=== PATIENT | male | born 1985 | race Caucasian/White ===

== ENCOUNTER 2020-06-18 16:39 | Inpatient (IN) | payer OTHER ==
[2020-06-18 16:46] VITALS: BMI 28.1
[2020-06-18] MEDS ORDERED: DEXAMETHASONE SOD PHOSPHATE 10 MG/1 ML VIAL IVPB ONE (18:09)
[2020-06-18] MEDS ORDERED: DEXAMETHASONE SOD PHOSPHATE 10 MG/1 ML VIAL ONE (18:38)
[2020-06-18 18:56] LABS: VENOUS BASE EXCESS -0.6 mmol/L (-2-2); VENOUS O2 SATURATION 45.7 % (70-80); VENOUS PCO2 48.7 mmHg (38-52); VENOUS PH 7.341 (7.310-7.410)
[2020-06-18 18:57] LABS: BASO % 0.3 % (0-2.0); HEMATOCRIT 42.4 % (35.4-49); HEMOGLOBIN 14.2 GM/dL (11.7-16.9); LYMPH % 14.6 % (8-40); MCH 31.7 pg (25.7-33.7); MCHC 33.6 g/dl (32.0-35.9); MEAN CELL VOLUME 94.3 fl (80-96); MEAN PLT VOLUME 9.1 fl (7.5-11.1); MONO % 5.8 % (3.8-10.2); NEUT % 79.3 % (42.8-82.8); PLATELET COUNT 307 K/MM3 (134-434); RBC 4.49 M/mm3 (4.00-5.60); RDW 12.7 % (11.9-15.9); WHITE BLOOD COUNT 9.1 K/mm3 (4.0-10.0)
[2020-06-18 19:00] LABS: INR 1.08 (0.83-1.09)
[2020-06-18 19:02] LABS: ACTIVATED PTT 38.6 SECONDS (25.2-36.5)
[2020-06-18 19:11] LABS: CHLORIDE 101 mmol/L (98-107); SODIUM 133 mmol/L (136-145)
[2020-06-18 19:13] LABS: ALBUMIN 3.3 g/dl (3.4-5.0); BLOOD UREA NITROGEN 10.4 mg/dL (7-18); CALCIUM 8.5 mg/dL (8.5-10.1); CO2 25 mmol/L (21-32)
[2020-06-18 19:15] LABS: GLUCOSE,RANDOM 91 mg/dL (74-106)
[2020-06-18 19:16] LABS: BILIRUBIN,DIRECT < 0.1 mg/dL (0.0-0.2); SGPT/ALT 54 U/L (13-61)
[2020-06-18 19:17] LABS: CREATININE 0.9 mg/dL (0.55-1.3); SGOT/AST 117 U/L (15-37)
[2020-06-18 19:18] LABS: BILIRUBIN,TOTAL 0.8 mg/dL (0.2-1); TOT PROT 7.8 g/dl (6.4-8.2)
[2020-06-18 19:19] LABS: ALK PHOS 65 U/L (45-117)
[2020-06-18] MEDS ORDERED: ENOXAPARIN NA (PORCINE) 40 MG/0.4 ML DISP.SYRIN SQ ONE ×2 (19:46→19:52)
[2020-06-18 20:09] LABS: ANION GAP 7 MMOL/L (8-16)
[2020-06-18 20:10] LABS: POTASSIUM 6.2 mmol/L (3.5-5.1)
[2020-06-18 20:23] LABS: LDH 988 U/L (87-246)
[2020-06-18] MEDS ORDERED: AZITHROMYCIN IVPB 500 MG/250 ML BAG IVPB ONE ×2 (21:07→21:13)
[2020-06-18] MEDS ORDERED: FAMOTIDINE 20 MG TABLET ONE (21:15)
[2020-06-18] MEDS: FAMOTIDINE 20 MG TABLET PO SCH (21:19)
[2020-06-18 22:06] LABS: CALCIUM 8.7 mg/dL (8.5-10.1)
[2020-06-18] MEDS: ENOXAPARIN NA (PORCINE) 80 MG/0.8 ML DISP.SYRIN SQ SCH (22:06)
[2020-06-18 22:07] LABS: BLOOD UREA NITROGEN 11.3 mg/dL (7-18)
[2020-06-18 22:10] LABS: CREATININE 0.7 mg/dL (0.55-1.3)
[2020-06-18] MEDS: ZINC SULFATE 220 MG CAPSULE (FP) PO SCH (23:50)
[2020-06-19] MEDS ORDERED: PT OWN MED DRAWER 7, Y5N ONE ×2 (02:40→21:55)
[2020-06-19] MEDS: ASCORBIC ACID 250 MG TABLET (FP) PO SCH ×3 (02:50→21:59)
[2020-06-19 08:27] LABS: BASO % 0.3 % (0-2.0); HEMATOCRIT 40.8 % (35.4-49); HEMOGLOBIN 14.1 GM/dL (11.7-16.9); LYMPH % 16.7 % (8-40); MCH 32.1 pg (25.7-33.7); MCHC 34.4 g/dl (32.0-35.9); MEAN CELL VOLUME 93.3 fl (80-96); MEAN PLT VOLUME 9.4 fl (7.5-11.1); MONO % 9.5 % (3.8-10.2); NEUT % 73.5 % (42.8-82.8); PLATELET COUNT 302 K/MM3 (134-434); RBC 4.38 M/mm3 (4.00-5.60); RDW 12.5 % (11.9-15.9)
[2020-06-19 08:30] LABS: INR 1.11 (0.83-1.09); PROTHROMBIN TIME (PATIENT) 13.6 SEC (9.7-13.0)
[2020-06-19 08:33] LABS: ACTIVATED PTT 32.7 SECONDS (25.2-36.5)
[2020-06-19 08:43] LABS: POTASSIUM 4.1 mmol/L (3.5-5.1)
[2020-06-19 08:47] LABS: CALCIUM 8.6 mg/dL (8.5-10.1)
[2020-06-19 08:49] LABS: MAGNESIUM 2.7 mg/dL (1.8-2.4)
[2020-06-19 08:52] LABS: CREATININE 0.7 mg/dL (0.55-1.3); PHOSPHOROUS 2.5 mg/dL (2.5-4.9)
[2020-06-19 08:53] LABS: BILIRUBIN,TOTAL 0.6 mg/dL (0.2-1); TOT PROT 7.2 g/dl (6.4-8.2)
[2020-06-19] MEDS ORDERED: cefTRIAXone SODIUM 1 GM VIAL ONE (09:39)
[2020-06-19] MEDS ORDERED: DEXTROSE 5%-WATER - 50 ML IVPB ONE (09:39)
[2020-06-19] MEDS: ZINC SULFATE 220 MG CAPSULE (FP) PO SCH ×2 (09:59→22:00)
[2020-06-19] MEDS: CHOLECALCIFEROL (VIT D3) 1,000 UNIT (25 MCG) TABLET PO SCH (09:59)
[2020-06-19] MEDS ORDERED: AZITHROMYCIN IVPB 250 MG in DEXTROSE 5%-WATER - 250 ML IVPB SCH (10:00)
[2020-06-19] MEDS: DEXAMETHASONE SOD PHOSPHATE 10 MG/1 ML VIAL IVPUSH SCH (10:00)
[2020-06-19] MEDS: ENOXAPARIN NA (PORCINE) 80 MG/0.8 ML DISP.SYRIN SQ SCH ×2 (10:00→22:00)
[2020-06-19] MEDS: CEFTRIAXONE 1 GM in DEXTROSE 5%-WATER - 50 ML IVPB SCH (10:01)
[2020-06-19] MEDS: FAMOTIDINE 20 MG TABLET PO SCH (10:01)
[2020-06-19] MEDS: AZITHROMYCIN IVPB 250 MG in DEXTROSE 5%-WATER - 250 ML IVPB SCH (10:23)
[2020-06-19] MEDS ORDERED: REMDESIVIR 200 MG in SODIUM CHLORIDE 210 ML IVPB ONE (15:15)
[2020-06-19] MEDS ORDERED: REMDESIVIR 200 MG in SODIUM CHLORIDE 250 ML IVPB ONE (15:15)
[2020-06-20 08:23] LABS: BASO % 0.4 % (0-2.0); HEMATOCRIT 37.3 % (35.4-49); HEMOGLOBIN 12.9 GM/dL (11.7-16.9); LYMPH % 12.5 % (8-40); MCH 32.2 pg (25.7-33.7); MCHC 34.4 g/dl (32.0-35.9); MEAN CELL VOLUME 93.6 fl (80-96); MEAN PLT VOLUME 9.5 fl (7.5-11.1); MONO % 11.7 % (3.8-10.2); NEUT % 75.4 % (42.8-82.8); PLATELET COUNT 340 K/MM3 (134-434); RBC 3.99 M/mm3 (4.00-5.60); RDW 12.3 % (11.9-15.9); WHITE BLOOD COUNT 9.9 K/mm3 (4.0-10.0)
[2020-06-20 08:37] LABS: POTASSIUM 4.1 mmol/L (3.5-5.1)
[2020-06-20 08:40] LABS: CALCIUM 8.4 mg/dL (8.5-10.1)
[2020-06-20 08:41] LABS: ALBUMIN 2.9 g/dl (3.4-5.0); BLOOD UREA NITROGEN 17.9 mg/dL (7-18); MAGNESIUM 2.5 mg/dL (1.8-2.4)
[2020-06-20 08:44] LABS: CREATININE 0.7 mg/dL (0.55-1.3); PHOSPHOROUS 3.3 mg/dL (2.5-4.9)
[2020-06-20 08:45] LABS: BILIRUBIN,TOTAL 0.4 mg/dL (0.2-1)
[2020-06-20 08:46] LABS: TOT PROT 6.4 g/dl (6.4-8.2)
[2020-06-20] MEDS ORDERED: PT OWN MED DRAWER 7, Y5N ONE ×3 (09:21→21:31)
[2020-06-20] MEDS ORDERED: cefTRIAXone SODIUM 1 GM VIAL ONE (09:22)
[2020-06-20] MEDS ORDERED: DEXTROSE 5%-WATER - 50 ML IVPB ONE (09:22)
[2020-06-20] MEDS: ASCORBIC ACID 250 MG TABLET (FP) PO SCH ×2 (09:31→21:35)
[2020-06-20] MEDS: ZINC SULFATE 220 MG CAPSULE (FP) PO SCH ×2 (09:31→21:35)
[2020-06-20] MEDS: CHOLECALCIFEROL (VIT D3) 1,000 UNIT (25 MCG) TABLET PO SCH (09:31)
[2020-06-20] MEDS: DEXAMETHASONE SOD PHOSPHATE 10 MG/1 ML VIAL IVPUSH SCH (09:31)
[2020-06-20] MEDS: FAMOTIDINE 20 MG TABLET PO SCH (09:32)
[2020-06-20] MEDS: CEFTRIAXONE 1 GM in DEXTROSE 5%-WATER - 50 ML IVPB SCH (09:32)
[2020-06-20] MEDS: ENOXAPARIN NA (PORCINE) 80 MG/0.8 ML DISP.SYRIN SQ SCH ×2 (09:32→21:36)
[2020-06-20] MEDS: AZITHROMYCIN IVPB 250 MG in DEXTROSE 5%-WATER - 250 ML IVPB SCH (10:18)
[2020-06-20] MEDS: REMDESIVIR 100 MG in SODIUM CHLORIDE 230 ML IVPB SCH (15:49)
[2020-06-21 07:26] LABS: BASO % 0.5 % (0-2.0); EOS % 0.1 % (0-4.5); HEMATOCRIT 36.8 % (35.4-49); HEMOGLOBIN 12.5 GM/dL (11.7-16.9); LYMPH % 25.5 % (8-40); MCH 31.4 pg (25.7-33.7); MCHC 33.9 g/dl (32.0-35.9); MEAN CELL VOLUME 92.7 fl (80-96); MONO % 11.3 % (3.8-10.2); NEUT % 62.6 % (42.8-82.8); PLATELET COUNT 366 K/MM3 (134-434); RBC 3.97 M/mm3 (4.00-5.60); RDW 12.4 % (11.9-15.9); WHITE BLOOD COUNT 8.3 K/mm3 (4.0-10.0)
[2020-06-21 07:42] LABS: POTASSIUM 4.3 mmol/L (3.5-5.1)
[2020-06-21 07:44] LABS: CALCIUM 8.5 mg/dL (8.5-10.1)
[2020-06-21 07:45] LABS: ALBUMIN 2.8 g/dl (3.4-5.0); BLOOD UREA NITROGEN 18.1 mg/dL (7-18); MAGNESIUM 2.6 mg/dL (1.8-2.4)
[2020-06-21 07:48] LABS: CREATININE 0.7 mg/dL (0.55-1.3)
[2020-06-21 07:50] LABS: BILIRUBIN,TOTAL 0.4 mg/dL (0.2-1); TOT PROT 6.3 g/dl (6.4-8.2)
[2020-06-21] MEDS ORDERED: DEXTROSE 5%-WATER - 50 ML IVPB ONE (09:30)
[2020-06-21] MEDS ORDERED: cefTRIAXone SODIUM 1 GM VIAL ONE (09:30)
[2020-06-21] MEDS ORDERED: PT OWN MED DRAWER 7, Y5N ONE ×4 (09:30→20:33)
[2020-06-21] MEDS: CEFTRIAXONE 1 GM in DEXTROSE 5%-WATER - 50 ML IVPB SCH (09:48)
[2020-06-21] MEDS: AZITHROMYCIN IVPB 250 MG in DEXTROSE 5%-WATER - 250 ML IVPB SCH (09:49)
[2020-06-21] MEDS: ENOXAPARIN NA (PORCINE) 80 MG/0.8 ML DISP.SYRIN SQ SCH ×2 (09:49→21:55)
[2020-06-21] MEDS: FAMOTIDINE 20 MG TABLET PO SCH (09:49)
[2020-06-21] MEDS: DEXAMETHASONE SOD PHOSPHATE 10 MG/1 ML VIAL IVPUSH SCH (09:50)
[2020-06-21] MEDS: ASCORBIC ACID 250 MG TABLET (FP) PO SCH ×2 (09:50→21:56)
[2020-06-21] MEDS: ZINC SULFATE 220 MG CAPSULE (FP) PO SCH ×2 (09:50→21:56)
[2020-06-21] MEDS: CHOLECALCIFEROL (VIT D3) 1,000 UNIT (25 MCG) TABLET PO SCH (09:50)
[2020-06-21] MEDS: REMDESIVIR 100 MG in SODIUM CHLORIDE 230 ML IVPB SCH (14:58)
[2020-06-22 08:44] LABS: BASO % 0.1 % (0-2.0); EOS % 0.1 % (0-4.5); HEMATOCRIT 37.6 % (35.4-49); HEMOGLOBIN 12.9 GM/dL (11.7-16.9); LYMPH % 30.2 % (8-40); MCH 32.5 pg (25.7-33.7); MCHC 34.4 g/dl (32.0-35.9); MEAN CELL VOLUME 94.6 fl (80-96); MEAN PLT VOLUME 9.1 fl (7.5-11.1); MONO % 12.4 % (3.8-10.2); NEUT % 57.2 % (42.8-82.8); PLATELET COUNT 352 K/MM3 (134-434); RBC 3.97 M/mm3 (4.00-5.60); RDW 12.4 % (11.9-15.9); WHITE BLOOD COUNT 8.4 K/mm3 (4.0-10.0)
[2020-06-22 09:01] LABS: POTASSIUM 4.3 mmol/L (3.5-5.1)
[2020-06-22 09:10] LABS: ALBUMIN 2.7 g/dl (3.4-5.0); BLOOD UREA NITROGEN 16.6 mg/dL (7-18); CALCIUM 8.2 mg/dL (8.5-10.1); MAGNESIUM 2.5 mg/dL (1.8-2.4)
[2020-06-22 09:13] LABS: CREATININE 0.6 mg/dL (0.55-1.3)
[2020-06-22 09:15] LABS: BILIRUBIN,TOTAL 0.5 mg/dL (0.2-1); TOT PROT 6.1 g/dl (6.4-8.2)
[2020-06-22] MEDS ORDERED: PT OWN MED DRAWER 7, Y5N ONE (10:41)
[2020-06-22] MEDS ORDERED: DEXTROSE 5%-WATER - 50 ML IVPB ONE (10:41)
[2020-06-22] MEDS ORDERED: cefTRIAXone SODIUM 1 GM VIAL ONE (10:41)
[2020-06-22] MEDS: ASCORBIC ACID 250 MG TABLET (FP) PO SCH ×2 (10:52→21:01)
[2020-06-22] MEDS: CHOLECALCIFEROL (VIT D3) 1,000 UNIT (25 MCG) TABLET PO SCH (10:52)
[2020-06-22] MEDS: FAMOTIDINE 20 MG TABLET PO SCH (10:53)
[2020-06-22] MEDS: ENOXAPARIN NA (PORCINE) 80 MG/0.8 ML DISP.SYRIN SQ SCH ×2 (10:53→21:01)
[2020-06-22] MEDS: DEXAMETHASONE SOD PHOSPHATE 10 MG/1 ML VIAL IVPUSH SCH (10:53)
[2020-06-22] MEDS: ZINC SULFATE 220 MG CAPSULE (FP) PO SCH ×2 (10:53→21:01)
[2020-06-22] MEDS: CEFTRIAXONE 1 GM in DEXTROSE 5%-WATER - 50 ML IVPB SCH (10:53)
[2020-06-22] MEDS: AZITHROMYCIN IVPB 250 MG in DEXTROSE 5%-WATER - 250 ML IVPB SCH (10:54)
[2020-06-22] MEDS: REMDESIVIR 100 MG in SODIUM CHLORIDE 230 ML IVPB SCH (14:34)
[2020-06-23 08:16] LABS: BASO % 0.2 % (0-2.0); EOS % 0.2 % (0-4.5); HEMATOCRIT 39.5 % (35.4-49); HEMOGLOBIN 13.4 GM/dL (11.7-16.9); MCH 31.6 pg (25.7-33.7); MCHC 33.8 g/dl (32.0-35.9); MEAN CELL VOLUME 93.3 fl (80-96); MEAN PLT VOLUME 8.9 fl (7.5-11.1); MONO % 9.2 % (3.8-10.2); NEUT % 56.4 % (42.8-82.8); PLATELET COUNT 415 K/MM3 (134-434); RBC 4.23 M/mm3 (4.00-5.60); RDW 12.3 % (11.9-15.9); WHITE BLOOD COUNT 8.4 K/mm3 (4.0-10.0)
[2020-06-23 08:28] LABS: POTASSIUM 4.3 mmol/L (3.5-5.1)
[2020-06-23 08:35] LABS: ALBUMIN 2.8 g/dl (3.4-5.0); BLOOD UREA NITROGEN 14.7 mg/dL (7-18); CALCIUM 8.5 mg/dL (8.5-10.1); MAGNESIUM 2.5 mg/dL (1.8-2.4)
[2020-06-23 08:38] LABS: CREATININE 0.6 mg/dL (0.55-1.3)
[2020-06-23 08:39] LABS: BILIRUBIN,TOTAL 0.4 mg/dL (0.2-1); TOT PROT 6.4 g/dl (6.4-8.2)
[2020-06-23] MEDS: DEXAMETHASONE SOD PHOSPHATE 10 MG/1 ML VIAL IVPUSH SCH (10:00)
[2020-06-23] MEDS: ENOXAPARIN NA (PORCINE) 80 MG/0.8 ML DISP.SYRIN SQ SCH (10:00)
[2020-06-23] MEDS: FAMOTIDINE 20 MG TABLET PO SCH (10:01)
[2020-06-23] MEDS: ZINC SULFATE 220 MG CAPSULE (FP) PO SCH ×2 (10:01→21:47)
[2020-06-23] MEDS: ASCORBIC ACID 250 MG TABLET (FP) PO SCH ×2 (10:01→21:47)
[2020-06-23] MEDS: CHOLECALCIFEROL (VIT D3) 1,000 UNIT (25 MCG) TABLET PO SCH (10:01)
[2020-06-23] MEDS: REMDESIVIR 100 MG in SODIUM CHLORIDE 230 ML IVPB SCH (15:22)
[2020-06-23] MEDS ORDERED: PT OWN MED DRAWER 7, Y5N ONE (21:04)
[2020-06-23] MEDS: APIXABAN 5 MG TABLET PO SCH (21:47)
[2020-06-24 06:48] LABS: BASO % 0.4 % (0-2.0); EOS % 0.2 % (0-4.5); HEMATOCRIT 40.9 % (35.4-49); HEMOGLOBIN 13.7 GM/dL (11.7-16.9); LYMPH % 30.6 % (8-40); MCH 31.3 pg (25.7-33.7); MCHC 33.5 g/dl (32.0-35.9); MEAN CELL VOLUME 93.5 fl (80-96); MEAN PLT VOLUME 8.7 fl (7.5-11.1); MONO % 9.9 % (3.8-10.2); NEUT % 58.9 % (42.8-82.8); PLATELET COUNT 442 K/MM3 (134-434); RBC 4.37 M/mm3 (4.00-5.60); RDW 12.6 % (11.9-15.9); WHITE BLOOD COUNT 9.5 K/mm3 (4.0-10.0)
[2020-06-24 07:09] LABS: POTASSIUM 4.4 mmol/L (3.5-5.1)
[2020-06-24 07:11] LABS: BLOOD UREA NITROGEN 21.1 mg/dL (7-18); CALCIUM 8.7 mg/dL (8.5-10.1); MAGNESIUM 2.5 mg/dL (1.8-2.4)
[2020-06-24 07:14] LABS: CREATININE 0.7 mg/dL (0.55-1.3)
[2020-06-24 07:16] LABS: BILIRUBIN,TOTAL 0.7 mg/dL (0.2-1); TOT PROT 6.3 g/dl (6.4-8.2)
[2020-06-24] MEDS ORDERED: PT OWN MED DRAWER 7, Y5N ONE (09:01)
[2020-06-24] MEDS: DEXAMETHASONE SOD PHOSPHATE 10 MG/1 ML VIAL IVPUSH SCH (09:11)
[2020-06-24] MEDS: APIXABAN 5 MG TABLET PO SCH ×2 (09:12→22:08)
[2020-06-24] MEDS: ASCORBIC ACID 250 MG TABLET (FP) PO SCH ×2 (09:12→22:08)
[2020-06-24] MEDS: ZINC SULFATE 220 MG CAPSULE (FP) PO SCH ×2 (09:12→22:08)
[2020-06-24] MEDS: CHOLECALCIFEROL (VIT D3) 1,000 UNIT (25 MCG) TABLET PO SCH (09:12)
[2020-06-24] MEDS: FAMOTIDINE 20 MG TABLET PO SCH (09:12)
[2020-06-25] MEDS: APIXABAN 5 MG TABLET PO SCH (09:55)
[2020-06-25] MEDS: CHOLECALCIFEROL (VIT D3) 1,000 UNIT (25 MCG) TABLET PO SCH (09:55)
[2020-06-25] MEDS: ASCORBIC ACID 250 MG TABLET (FP) PO SCH (09:55)
[2020-06-25] MEDS: ZINC SULFATE 220 MG CAPSULE (FP) PO SCH (09:55)
[2020-06-25] MEDS: FAMOTIDINE 20 MG TABLET PO SCH (09:56)
[2020-06-25] MEDS ORDERED: DEXAMETHASONE 4 MG TABLET (FP) PO SCH (10:00)
[2020-06-25 10:14] VITALS: TEMP 98.6
[2020-06-25 14:39] VITALS: BP 116/61; PULSE 67
[2020-06-25 23:07] LABS: HEP B CORE AB, TOT Negative (Negative)
[2020-06-27] MEDS ORDERED: DEXAMETHASONE 2 MG TABLET PO SCH (10:00)
== END 2020-06-25 15:59 | disposition home or self-care (01) | DRG 137 ==
LOC: JER 16:39 → JERBED 18:10 → J8W 22:44
PROVIDERS: ADMIT Internal Medicine; ATTEND Nurse Practitioner Family
PROC: XW13325 Transfusion of Convalescent Plasma (Nonautologous) into Peripheral Vein, Percutaneous Approach, New Technology Group 5 (ICD-10-PCS; principal; 2020-06-19)
PROC: XW033E5 Introduction of Remdesivir Anti-infective into Peripheral Vein, Percutaneous Approach, New Technology Group 5 (ICD-10-PCS; 2020-06-19)
DX: U07.1 COVID-19 (principal); J12.89 Other viral pneumonia; J96.01 Acute respiratory failure with hypoxia; R79.89 Other specified abnormal findings of blood chemistry
CPT/HCPCS: 36415; 36430; 71045-TC-FY; 76705-TC; 80048; 80053; 82248; 82550; 82553; 82728; 82803; 83605; 83615; 83735; 84100; 84484; 85025; 85379; 85610; 85730; 86140; 86704; 86706; 86707; 86708; 86709; 86850; 86900; 86901; 87040; 87070; 87205; 87340; 87522; 87899; 93005; 93010; 94761; 99285-25; C9803; J1100; P9017; U0003